=== PATIENT | female | born 1995 | race African-American/Black ===

== ENCOUNTER 2020-01-02 10:41 | Emergency (ER) | payer BC ==
[~2020-01-02] VITALS: Ht 170.2 cm; Wt 66.0 kg
[2020-01-02 10:52] VITALS: BP 141/92
[2020-01-02] MEDS ORDERED: LORAZEPAM 0.5MG TABLET PO ONE (11:45)
[2020-01-02 11:58] LABS: BASOPHILS % 0.4 % (0.0-2.0); EOSINOPHILS % 0.8 % (0.0-5.0); HEMATOCRIT. 41.9 % (36.0-48.0); HEMOGLOBIN. 14.2 g/dL (12.0-16.0); LYMPHOCYTES % 23.3 % (20.0-50.0); MEAN CORPUSCULAR HEMOGLOBIN 30.4 pg (28.0-32.0); MEAN CORPUSCULAR VOLUME 89.4 fL (81.0-99.0); MEAN PLATELET VOLUME 7.7 fl (7.4-10.4); MONOCYTES % 6.2 % (2.0-8.0); NEUTROPHILS % 69.3 % (40.0-76.0); PLATELET 284 x1000/uL (130-400); RED BLOOD CELL COUNT 4.68 mill/uL (4.2-5.4); RED CELL DISTRIBUTION WIDTH 12.4 % (11.6-14.6)
[2020-01-02 12:04] LABS: CHLORIDE 106 mEq/L (98-107)
== END 2020-01-02 13:53 | disposition home or self-care (01) ==
LOC: ER 10:41
DX: F41.9 Anxiety disorder, unspecified (principal)
CPT/HCPCS: 36415; 80053; 85025; 93005; 99284